=== PATIENT | male | born 1965 | race Caucasian/White ===

== ENCOUNTER 2025-01-17 05:29 | Emergency (ER) | payer OTHER, SELFPAY ==
[2025-01-17 05:32] VITALS: BP 130/79; BMI 31.4
--- NOTE | 2025-01-17 05:37 | ED.MUSCINJ ---
HPI-Injury
<Isrrael Strong DO - Last Filed: 01/18/25 23:47>
General
Chief Complaint: Fall
Source: patient
Time Seen by Provider: 01/17/25 05:34
History of Present Illness-Injury
Initial Injury comments:
Note:
CHIEF COMPLAINT(S)
Fell down stairs, right ankle pain.
HISTORY OF PRESENT ILLNESS
The patient presents after a fall involving approximately 15 steps. The patient reports stumbling and denies losing consciousness, dizziness, or hitting their head. The patient is not on blood thinners, except for taking a low-dose aspirin due to a
history of stroke. The patient reports good control of blood glucose levels. The pain is localized to the lateral side of the right ankle, which appears slightly swollen. The patient denies chest pain, pelvic pain, or other injuries. The ability to
walk remains intact, although the patient did not attempt to walk backward. The pain reportedly began immediately after the fall.
PHYSICAL EXAM
- Extremities: Swelling noted on the lateral side of the right ankle.
Nursing notes reviewed and vital signs reviewed.
PROBLEM LIST
Acute problems:
- Right ankle pain and swelling following a fall.
PLAN
- Conduct an X-ray of the right ankle and foot to assess for possible fracture.
DIFFERENTIAL DIAGNOSIS
The Differential Diagnosis includes, in no particular order and is not limited to:
1. Ankle sprain
2. Ankle fracture
3. Soft tissue injury
4. Tendon injury
5. Ligament tear
6. Contusion
7. Osteoarthritis exacerbation
8. Gout
9. Infection or cellulitis
10. Peripheral vascular injury
Musculoskeletal Injury Exam
<Isrrael Strong DO - Last Filed: 01/18/25 23:47>
Musculoskeletal Injury Exam
Right Ankle:
Pain with Movement?: Mild
Tender to palpation?: Mild
Soft tissue swelling?: Mild
External deformity and angulation?: None
Joint effusion?: None
Contusion?: None
Hematoma-local bleeding into tissue?: None
Strain- Sprain- Tear (Connective tissue injury)?: None
Crepitus with movement?: No
Joint instability?: No
Malalignment/deformity?: No
Range of motion: Full
Distal skin color and temperature: normal-warm & good color
Capillary Refill: normal
Phy Exam
<Isrrael Strong DO - Last Filed: 01/18/25 23:47>
Physical Exam
Physical Exam:
.
Injury Course
<Isrrael Strong DO - Last Filed: 01/18/25 23:47>
Orders/Labs/Results
Orders:
Orders
01/17/25 05:34
Ankle, Right 3 view CR [CR Ankle - Right Min 3 Views *] Urgent
Comment:
Reason For Exam: fall
Foot, Right 3 View [CR Foot - Right Min 3 Views] Urgent
Comment:
Reason For Exam: fall
<Sarita Farrar DO - Last Filed: 01/17/25 09:00>
Orders/Labs/Results
Orders:
Orders
01/17/25 05:34
Ankle, Right 3 view CR [CR Ankle - Right Min 3 Views *] Urgent
Comment:
Reason For Exam: fall
Foot, Right 3 View [CR Foot - Right Min 3 Views] Urgent
Comment:
Reason For Exam: fall
<Isrrael Strong DO - Last Filed: 01/18/25 23:47>
*Pulse Oximetry
Patient hypoxic: no
*Critical Care Note
Total Time (30-74mins, 75-104mins- exclusive of procedures): Not Applicable
<Sarita Farrar, - Last Filed: 01/17/25 09:00>
Update Note
Update Note:
Attending SignOut Note (Sarita Rose DO)
07:30 -assuming care of patient, who presented after a fall with ankle pain. Pending x-rays at time of signout. X-ray shows a right medial malleolar fracture. Will place in posterior short leg with stirrup, nonweightbearing status. Plan for
follow-up with orthopedics.
09:00 - Per radiology, also possible subtle nondisplaced fracture of the distal fibula. Patient made aware. Plan for discharge
ED Attending Note
<Isrrael Strong DO - Last Filed: 01/18/25 23:47>
-
Portions of this chart may have been created with voice recognition software.� Occasional wrong word or��sound alike� substitutions may have occurred due to the inherent limitations of voice recognition software.
Discharge Plan
Departure
Patient Disposition: Home (Routine Discharge)
Date of Disposition: 01/17/25
Time of Disposition: 09:01
Patient with high blood pressure during this ER visit?: Yes
Discharge Problem:
Fracture of medial malleolus, Dislocation of distal end of right fibula
Instructions: Preventing falls in adults, Ankle Fracture ED, BLOOD PRESSURE
Referrals:
[facility] [Provider Group]
UNKNOWN - PT DOES,NOT KNOW [Unknown Provider]
Activity Restrictions/Additional Instructions:
You were seen in the emergency department for ankle pain. You were found to have an ankle fracture and you were splinted. Please follow-up with orthopedic doctor.
Thank You for choosing [facility].
It was a pleasure meeting you and taking part in your care. We hope for your continued healing and wellness.
Please read discharge instructions in their entirety. However, they are for general education and may not describe your exact diagnosis at discharge. Information on your ER visit and medical conditions were discussed with you along with appropriate
follow up information...
If indicated, please take your medications as instructed and indicated on discharge paperwork.
Please schedule a follow up appointment as directed. Call to schedule an appointment
Please return to the emergency department with ANY change in, persisting, or worsening of symptoms. If any of your symptoms do not improve, or persist, or become more severe within 6-12 hours, please return to the emergency department for further
care.
Please return to the emergency department if you develop a headache, neck pain/stiffness, fever greater than 100.4F, chest pain, shortness of breath, persistent nausea, vomiting, slurred speech, difficulty walking, numbness/tingling, weakness, signs
of infection or any other symptoms that are worrisome to you.
If you have any questions or concerns please do not hesitate to call the Hospital at or E-mail me directly at [email or web address]
Interventions
Interventions:
*Risk Screen - Suicide Last Done: 01/17/25 05:32
*General Assessment Last Done: 01/17/25 05:32
*Neglect/Abuse Screening Last Done: 01/17/25 05:32
*ED- Fall Risk Assessment Last Done: 01/17/25 05:32
*Nursing Disposition Last Done: 01/17/25 09:11
ED-Musculoskeletal Assessment Last Done: 01/17/25 05:43
ED- Neurological Assessment Last Done: 01/17/25 05:43
ED-Skin Assessment Last Done: 01/17/25 05:43
Discharge Date and Time
Discharge Date/Time: 01/17/25 09:11
Print Language: SAMOAN
[2025-01-17 09:11] VITALS: BP 140/77
== END 2025-01-17 09:11 | disposition home or self-care (01) ==
LOC: EMR 05:29
PROVIDERS: EMERGENCY PHYSICIAN Student in an Organized Health Care Education/Training Program; FAMILY PHYSICIAN Family Medicine
DX: S82.51XA Displaced fracture of medial malleolus of right tibia, initial encounter for closed fracture (principal); S93.04XA Dislocation of right ankle joint, initial encounter; W10.9XXA Fall (on) (from) unspecified stairs and steps, initial encounter; Z86.73 Personal history of transient ischemic attack (TIA), and cerebral infarction without residual deficits
CPT/HCPCS: 99283; 73610; 73630